=== PATIENT | female | born 1940 | race Caucasian/White ===

== ENCOUNTER 2018-06-05 21:00 | Emergency (ER) | payer MEDICARE, BC ==
[~2018-06-05] VITALS: Ht 162.6 cm; Wt 100.0 kg
[~2018-06-05 21:00] MED LIST: ASPI-1264 PO; ATOR10TA87 PO; CLOP75TA15 PO; GLIM1TAB46 PO; LEVO200T43 PO; MAX25Tt PO; METF500T PO
[2018-06-05 21:26] LABS: BASOPHILS # (AUTO) 0.1 X10'3 (0-0.2); BASOPHILS % (AUTO) 0.4 % (0-1); EOSINOPHILS # (AUTO) 0.2 X10'3 (0-0.9); EOSINOPHILS % (AUTO) 1.9 % (0-6); HEMATOCRIT 40.9 % (35.0-45.0); HEMOGLOBIN 13.4 g/dl (12.0-16.0); LYMPHOCYTES # (AUTO) 2.7 X10'3 (1.1-4.8); LYMPHOCYTES % (AUTO) 20.9 % (21-51); MEAN CORPUSCULAR HGB CONC 32.7 % (33.0-36.5); MEAN CORPUSCULAR VOLUME 85.5 FL (78-98); MEAN PLATELET VOLUME 8.6 FL (7.4-10.4); MONOCYTES # (AUTO) 0.6 X10'3 (0-0.9); MONOCYTES % (AUTO) 4.4 % (2-12); NEUTROPHILS # (AUTO) 9.2 X10'3 (1.8-7.7); NEUTROPHILS % (AUTO) 72.4 % (42-75); PLATELET COUNT 303 X10'3 (140-440); RED BLOOD COUNT 4.78 X10'6 (4.20-5.60); RED CELL DISTRIBUTION WIDTH 14.5 % (11.5-14.5); WHITE BLOOD COUNT 12.7 X10'3 (4.5-11.0)
[2018-06-05 21:44] LABS: PARTIAL THROMBOPLASTIN TIME 27 SECONDS (22-32)
[2018-06-05 21:46] LABS: ALANINE AMINOTRANSFERASE 19 U/L (12-78); ALBUMIN 3.7 G/DL (3.4-5.0); ALBUMIN/GLOBULIN RATIO 0.9 (1.1-1.5); ALKALINE PHOSPHATASE 77 IU/L (46-116); ANION GAP 12 (8-16); ASPARTATE AMINO TRANSFERASE 16 U/L (10-37); BILIRUBIN,TOTAL 0.3 MG/DL (0.1-1.0); BLOOD UREA NITROGEN 31 MG/DL (7-18); CALCIUM 9.1 MG/DL (8.5-10.1); CHLORIDE 103 MMOL/L (99-107); CREATININE 1.55 MG/DL (0.40-0.90); GLUCOSE 197 MG/DL (70-104); POTASSIUM 3.7 MMOL/L (3.5-5.1); SODIUM 141 MMOL/L (135-145); TOTAL CARBON DIOXIDE 25.9 MMOL/L (24-32); TOTAL PROTEIN 7.8 G/DL (6.4-8.2); TROPONIN I < 0.04 NG/ML (0.0-0.05); eGFR 33 ML/MIN
[2018-06-05 21:48] VITALS: BP 163/85
[2018-06-05] MEDS ORDERED: diphenhydrAMINE 25mg capsule PO ONE (22:00)
== END 2018-06-05 22:32 | disposition home or self-care (01) ==
LOC: ER 21:00
DX: S00.86XA Insect bite (nonvenomous) of other part of head, initial encounter (principal); R29.810 Facial weakness; I25.10 Atherosclerotic heart disease of native coronary artery without angina pectoris; I50.9 Heart failure, unspecified; E03.9 Hypothyroidism, unspecified; Z90.710 Acquired absence of both cervix and uterus; Z86.73 Personal history of transient ischemic attack (TIA), and cerebral infarction without residual deficits; Z98.890 Other specified postprocedural states; Z88.5 Allergy status to narcotic agent; Z79.82 Long term (current) use of aspirin; Z79.899 Other long term (current) drug therapy; W57.XXXA Bitten or stung by nonvenomous insect and other nonvenomous arthropods, initial encounter; Y93.89 Activity, other specified; Y92.89 Other specified places as the place of occurrence of the external cause; Y99.8 Other external cause status
CPT/HCPCS: 36415; 70450; 80053; 84484; 85025; 85610; 85651; 85730; 93005; 99284; Q0163

== ENCOUNTER 2019-01-22 09:42 | Emergency (ER) | payer MEDICARE, BC ==
[~2019-01-22] VITALS: Ht 152.4 cm; Wt 96.4 kg
--- NOTE | 2019-01-22 09:59 | NUR ---
PT TAKEN TO CT
[2019-01-22 10:44] LABS: BASOPHILS # (AUTO) 0.1 X10'3 (0-0.2); EOSINOPHILS # (AUTO) 0.2 X10'3 (0-0.9); EOSINOPHILS % (AUTO) 2.5 % (0-6); HEMATOCRIT 40.6 % (35.0-45.0); HEMOGLOBIN 13.3 g/dl (12.0-16.0); LYMPHOCYTES # (AUTO) 1.7 X10'3 (1.1-4.8); LYMPHOCYTES % (AUTO) 19.3 % (21-51); MEAN CORPUSCULAR HEMOGLOBIN 27.7 PG (27.0-31.0); MEAN CORPUSCULAR HGB CONC 32.8 g/dL (33.0-36.5); MEAN CORPUSCULAR VOLUME 84.5 FL (78-98); MEAN PLATELET VOLUME 8.5 FL (7.4-10.4); MONOCYTES # (AUTO) 0.5 X10'3 (0-0.9); MONOCYTES % (AUTO) 6.1 % (2-12); NEUTROPHILS # (AUTO) 6.3 X10'3 (1.8-7.7); NEUTROPHILS % (AUTO) 71.1 % (42-75); PLATELET COUNT 238 X10'3 (140-440); RED BLOOD COUNT 4.81 X10'6 (4.20-5.60); RED CELL DISTRIBUTION WIDTH 14.5 % (11.5-14.5); WHITE BLOOD COUNT 8.9 X10'3 (4.5-11.0)
[2019-01-22 10:55] LABS: PARTIAL THROMBOPLASTIN TIME 27 SECONDS (22-32)
[2019-01-22 10:59] LABS: ALANINE AMINOTRANSFERASE 22 U/L (12-78); ALBUMIN 3.6 G/DL (3.4-5.0); ALBUMIN/GLOBULIN RATIO 0.9 (1.1-1.5); ALKALINE PHOSPHATASE 75 IU/L (46-116); ANION GAP 12 (8-16); ASPARTATE AMINO TRANSFERASE 17 U/L (10-37); BILIRUBIN,TOTAL 0.4 MG/DL (0.1-1.0); BLOOD UREA NITROGEN 28 MG/DL (7-18); BUN/CREATININE RATIO 20.9 (6.6-38.0); CALCIUM 8.9 MG/DL (8.5-10.1); CHLORIDE 106 MMOL/L (99-107); CREATININE 1.34 MG/DL (0.40-0.90); GLUCOSE 98 MG/DL (70-104); POTASSIUM 3.6 MMOL/L (3.5-5.1); SODIUM 143 MMOL/L (135-145); TOTAL CARBON DIOXIDE 25.4 MMOL/L (24-32); TOTAL PROTEIN 7.5 G/DL (6.4-8.2); eGFR 38 ML/MIN
[2019-01-22 11:03] LABS: TROPONIN I < 0.04 NG/ML (0.0-0.05)
[2019-01-22 13:54] LABS: CLARITY,URINE CLEAR (Clear); COLOR,URINE YELLOW (Yellow); GLUCOSE, URINE NEGATIVE (Neg); KETONES,URINE NEGATIVE (Neg); LEUKOCYTE ESTERASE ,URINE NEGATIVE (Neg); NITRITES, URINE NEGATIVE (Neg); OCCULT BLOOD,URINE NEGATIVE (Neg); PROTEIN,URINE NEGATIVE (Neg); UA COLLECTION TYPE STRAIGHT CATH; UROBILINOGEN,URINE 0.2 E.U/dL (0.2-1.0)
[2019-01-22 14:36] VITALS: BP 144/76
== END 2019-01-22 14:38 | disposition home or self-care (01) ==
LOC: ER 09:43
DX: R53.1 Weakness (principal); R20.0 Anesthesia of skin; I25.10 Atherosclerotic heart disease of native coronary artery without angina pectoris; I25.2 Old myocardial infarction; E11.9 Type 2 diabetes mellitus without complications; E03.9 Hypothyroidism, unspecified; Z86.73 Personal history of transient ischemic attack (TIA), and cerebral infarction without residual deficits; Z90.710 Acquired absence of both cervix and uterus; Z98.890 Other specified postprocedural states; Z88.5 Allergy status to narcotic agent; Z79.82 Long term (current) use of aspirin; Z79.84 Long term (current) use of oral hypoglycemic drugs; Z79.899 Other long term (current) drug therapy; Z79.01 Long term (current) use of anticoagulants
CPT/HCPCS: 36415; 70450; 71045; 80053; 81003; 82948; 84484; 85025; 85610; 85730; 93005; 99284; P9612

== ENCOUNTER 2021-04-08 13:52 | Emergency (ER) | payer MEDICARE, BC ==
[~2021-04-08] VITALS: Ht 165.1 cm; Wt 78.2 kg
[~2021-04-08 13:52] MED LIST changes: +ASPI-1071 PO; -ASPI-1264 PO; -CLOP75TA15 PO; -GLIM1TAB46 PO; +HYDROchlorothiazide tablet PO; +LEVO125T8 PO; -LEVO200T43 PO; -MAX25Tt PO; -METF500T PO
[2021-04-08 14:58] LABS: BASOPHILS % (AUTO) 0.3 % (0-1); EOSINOPHILS # (AUTO) 0.1 X10'3 (0-0.9); EOSINOPHILS % (AUTO) 0.5 % (0-6); HEMATOCRIT 35.6 % (35.0-45.0); HEMOGLOBIN 12.1 g/dl (12.0-16.0); LYMPHOCYTES # (AUTO) 1.1 X10'3 (1.1-4.8); MEAN CORPUSCULAR HEMOGLOBIN 29.7 PG (27.0-31.0); MEAN CORPUSCULAR VOLUME 87.3 FL (78-98); MEAN PLATELET VOLUME 8.9 FL (7.4-10.4); MONOCYTES # (AUTO) 0.5 X10'3 (0-0.9); MONOCYTES % (AUTO) 5.1 % (2-12); NEUTROPHILS # (AUTO) 8.8 X10'3 (1.8-7.7); NEUTROPHILS % (AUTO) 84.1 % (42-75); PLATELET COUNT 194 X10'3 (140-440); RED BLOOD COUNT 4.07 X10'6 (4.20-5.60); RED CELL DISTRIBUTION WIDTH 13.9 % (11.5-14.5); WHITE BLOOD COUNT 10.5 X10'3 (4.5-11.0)
[2021-04-08 15:14] LABS: ALANINE AMINOTRANSFERASE 15 U/L (12-78); ALBUMIN 3.8 G/DL (3.4-5.0); ALBUMIN/GLOBULIN RATIO 1.1 (1.1-1.5); ALKALINE PHOSPHATASE 79 IU/L (46-116); ANION GAP 10 (8-16); ASPARTATE AMINO TRANSFERASE 21 U/L (10-37); BILIRUBIN,TOTAL 0.4 MG/DL (0.1-1.0); BLOOD UREA NITROGEN 32 MG/DL (7-18); BUN/CREATININE RATIO 19.3 (6.6-38.0); CALCIUM 9.1 MG/DL (8.5-10.1); CHLORIDE 107 MMOL/L (99-107); CREATININE 1.66 MG/DL (0.40-0.90); GLUCOSE 158 MG/DL (70-104); POTASSIUM 3.6 MMOL/L (3.5-5.1); SODIUM 143 MMOL/L (135-145); TOTAL CARBON DIOXIDE 25.6 MMOL/L (24-32); TOTAL PROTEIN 7.4 G/DL (6.4-8.2); eGFR 30 ML/MIN
--- NOTE | 2021-04-08 15:16 | NUR ---
sister at be bedside.
[2021-04-08] MEDS ORDERED: normal saline 1000ML IV soln IVB ONE (16:30)
[2021-04-08 17:40] VITALS: BP 158/82
== END 2021-04-08 19:13 | disposition home or self-care (01) ==
LOC: ER 13:53
DX: E86.0 Dehydration (principal); R55 Syncope and collapse; I25.10 Atherosclerotic heart disease of native coronary artery without angina pectoris; I25.2 Old myocardial infarction; E11.9 Type 2 diabetes mellitus without complications; Z86.73 Personal history of transient ischemic attack (TIA), and cerebral infarction without residual deficits; Z90.710 Acquired absence of both cervix and uterus; Z98.890 Other specified postprocedural states; Z88.5 Allergy status to narcotic agent; Z79.82 Long term (current) use of aspirin; Z79.899 Other long term (current) drug therapy
CPT/HCPCS: 36415; 71045; 80053; 83880; 84484; 85025; 93005; 99285; J7030

== ENCOUNTER 2021-04-13 15:44 | Inpatient (IN) | payer MEDICARE, BC ==
[~2021-04-13] VITALS: Ht 162.6 cm; Wt 80.2 kg
[2021-04-13 19:12] LABS: BASOPHILS % (AUTO) 0.3 % (0-1); EOSINOPHILS # (AUTO) 0.1 X10'3 (0-0.9); EOSINOPHILS % (AUTO) 0.4 % (0-6); HEMATOCRIT 35.4 % (35.0-45.0); HEMOGLOBIN 11.7 g/dl (12.0-16.0); LYMPHOCYTES # (AUTO) 1.5 X10'3 (1.1-4.8); LYMPHOCYTES % (AUTO) 12.2 % (21-51); MEAN CORPUSCULAR HEMOGLOBIN 28.8 PG (27.0-31.0); MEAN CORPUSCULAR HGB CONC 33.2 g/dL (33.0-36.5); MEAN PLATELET VOLUME 8.8 FL (7.4-10.4); MONOCYTES # (AUTO) 0.6 X10'3 (0-0.9); MONOCYTES % (AUTO) 4.7 % (2-12); NEUTROPHILS # (AUTO) 9.8 X10'3 (1.8-7.7); NEUTROPHILS % (AUTO) 82.4 % (42-75); PLATELET COUNT 262 X10'3 (140-440); RED BLOOD COUNT 4.07 X10'6 (4.20-5.60); RED CELL DISTRIBUTION WIDTH 14.2 % (11.5-14.5); WHITE BLOOD COUNT 11.9 X10'3 (4.5-11.0)
[2021-04-13 19:24] LABS: PARTIAL THROMBOPLASTIN TIME 25 SECONDS (22-32)
[2021-04-13 19:27] LABS: ALANINE AMINOTRANSFERASE 18 U/L (12-78); ALBUMIN 3.7 G/DL (3.4-5.0); ALKALINE PHOSPHATASE 75 IU/L (46-116); ANION GAP 10 (8-16); ASPARTATE AMINO TRANSFERASE 27 U/L (10-37); BILIRUBIN,TOTAL 0.4 MG/DL (0.1-1.0); BLOOD UREA NITROGEN 33 MG/DL (7-18); BUN/CREATININE RATIO 24.6 (6.6-38.0); CALCIUM 8.8 MG/DL (8.5-10.1); CHLORIDE 106 MMOL/L (99-107); CREATININE 1.34 MG/DL (0.40-0.90); POTASSIUM 3.5 MMOL/L (3.5-5.1); SODIUM 143 MMOL/L (135-145); TOTAL PROTEIN 7.3 G/DL (6.4-8.2); eGFR 38 ML/MIN
[2021-04-13 19:31] LABS: GLUCOSE 39 MG/DL (70-104)
--- NOTE | 2021-04-13 19:31 | NUR ---
LAB CALLED; GLU 39; NOTIFIED
[2021-04-13] MEDS ORDERED: dextrose ORAL solution 15 GM/59 ML bottle PO ONE (19:35)
--- NOTE | 2021-04-13 19:38 | NUR ---
PATIENT WAS GIVEN GLUCOSE SHOT AND 4 OZ APPLE JUICE.
[2021-04-13] MEDS ORDERED: mag hydrox/Alum hydrox/simeth 30ml oral suspension PO PRN (23:35)
[2021-04-13] MEDS ORDERED: enoxaparin 100mg/ml syringe SUBCUT ONE (23:35)
[2021-04-13] MEDS ORDERED: acetaminophen 325mg tablet PO PRN ×2 (23:35)
[2021-04-13] MEDS ORDERED: magnesium hydroxide 30ml (MOM) UD suspension PO PRN (23:35)
[2021-04-13] MEDS ORDERED: morphine 2 MG/ML inj. syringe IV PRN ×2 (23:35)
[2021-04-13] MEDS ORDERED: ondansetron/PF 4mg/2ml inj IV PRN (23:35)
[2021-04-14] VITALS (9 sets, daily range): BP systolic 94–152; BP diastolic 54–72
[2021-04-14] MEDS ORDERED: ibuprofen tablet 400 MG TABLET PO ONE (00:10)
[2021-04-14 00:48] LABS: CLARITY,URINE SLIGHTLY CLOUDY (Clear); COLOR,URINE YELLOW (Yellow); GLUCOSE, URINE NEGATIVE (Neg); KETONES,URINE NEGATIVE (Neg); PROTEIN,URINE NEGATIVE (Neg); UA COLLECTION TYPE OTHER
[2021-04-14 00:49] LABS: LEUKOCYTE ESTERASE ,URINE MODERATE (Neg); NITRITES, URINE NEGATIVE (Neg); OCCULT BLOOD,URINE NEGATIVE (Neg); UROBILINOGEN,URINE 0.2 E.U/dL (0.2-1.0)
[2021-04-14 01:09] LABS: BACTERIA,URINE 1+ /HPF (Neg); SQUAMOUS EPITHELIAL CELL,UR MANY /LPF (FEW)
[2021-04-14 01:10] LABS: RBC,URINE 0-2 /HPF (0-2)
--- NOTE | 2021-04-14 03:48 | NUR ---
Pt arrived in the unit via gurney. a/O x 4, stable; Oriented the pt in the room and remind pt to use call pelaez button when in need. Tele monitor in placed. Pannus is red/excoriated & applied barrier cream. MRSA swab and 2 RN skin assessment done.
--- NOTE | 2021-04-14 06:52 | NUR ---
Problems reprioritized. Patient report given, questions answered & plan of care reviewed with MARY Greenfield.
[2021-04-14] MEDS: aspirin 81mg, enteric-coated 1 TAB TABLET.DR PO SCH (07:24)
[2021-04-14] MEDS: metoprolol tartrate 25mg tablet PO SCH ×2 (07:25→20:57)
[2021-04-14] MEDS: docusate sod 100mg capsule PO SCH ×2 (08:00→20:57)
[2021-04-14 08:23] LABS: BASOPHILS % (AUTO) 0.6 % (0-1); EOSINOPHILS # (AUTO) 0.2 X10'3 (0-0.9); EOSINOPHILS % (AUTO) 2.5 % (0-6); HEMATOCRIT 37.1 % (35.0-45.0); HEMOGLOBIN 12.1 g/dl (12.0-16.0); LYMPHOCYTES # (AUTO) 1.9 X10'3 (1.1-4.8); LYMPHOCYTES % (AUTO) 27.4 % (21-51); MEAN CORPUSCULAR HEMOGLOBIN 29.1 PG (27.0-31.0); MEAN CORPUSCULAR HGB CONC 32.6 g/dL (33.0-36.5); MEAN CORPUSCULAR VOLUME 89.4 FL (78-98); MEAN PLATELET VOLUME 9.2 FL (7.4-10.4); MONOCYTES # (AUTO) 0.5 X10'3 (0-0.9); MONOCYTES % (AUTO) 7.2 % (2-12); NEUTROPHILS # (AUTO) 4.4 X10'3 (1.8-7.7); NEUTROPHILS % (AUTO) 62.3 % (42-75); PLATELET COUNT 210 X10'3 (140-440); RED BLOOD COUNT 4.15 X10'6 (4.20-5.60); RED CELL DISTRIBUTION WIDTH 14.4 % (11.5-14.5)
[2021-04-14 09:22] LABS: D-DIMER 0.98 MG/L FEU (0-0.50)
[2021-04-14 09:53] LABS: ALBUMIN 3.7 G/DL (3.4-5.0); ANION GAP 15 (8-16); BLOOD UREA NITROGEN 32 MG/DL (7-18); BUN/CREATININE RATIO 26.2 (6.6-38.0); CALCIUM 9.3 MG/DL (8.5-10.1); CHLORIDE 109 MMOL/L (99-107); CHOLESTEROL 117 MG/DL (0-200); CREATININE 1.22 MG/DL (0.40-0.90); GLUCOSE 110 MG/DL (70-104); HDL CHOLESTEROL 39 MG/DL (35-60); LDL CHOLESTEROL 60 MG/DL (50-100); POTASSIUM 3.3 MMOL/L (3.5-5.1); SODIUM 149 MMOL/L (135-145); TOTAL CARBON DIOXIDE 25.4 MMOL/L (24-32); TRIGLYCERIDES 134 MG/DL (20-135); eGFR 43 ML/MIN
[2021-04-14] MEDS ORDERED: OXYB5TAB16 PO (14:06)
[2021-04-14] MEDS ORDERED: LEVO200T8 PO (14:06)
[2021-04-14] MEDS ORDERED: GLIM4TAB7 PO (14:06)
[2021-04-14] MEDS ORDERED: ATOR10TA70 PO (14:06)
[2021-04-14] MEDS ORDERED: TRIA1CAP6 PO (14:06)
[2021-04-14] MEDS ORDERED: METF-438 PO (14:06)
[2021-04-14] MEDS ORDERED: [UNRECOGNIZED DRUG - OTHER] PO SCH (18:31)
--- NOTE | 2021-04-14 19:55 | NUR ---
Status post fall, CT head negative- confused and family concern due to sudden episode of confusion. Hx. of CVA BP 146/58,p87, spo2 98@R/A. No new medication in the last 24 hours. Page sent to hospitalist and awaiting.
[2021-04-14] MEDS: oxybutynin 5mg tablet PO SCH (20:57)
[2021-04-15] MEDS: HYDROcodone/acetaminophen 5mg/325mg tablet PO PRN ×2 (00:26→19:45)
--- NOTE | 2021-04-15 03:59 | NUR ---
Hospitalist called made aware of patient status/ confusion and recommendation received to continue monitoring.
--- NOTE | 2021-04-15 06:22 | NUR ---
Patient in room PCU 3019. I have received report from MARY Heller and had the opportunity to ask questions and assume patient care.
[2021-04-15 06:47] LABS: BASOPHILS % (AUTO) 0.4 % (0-1); EOSINOPHILS # (AUTO) 0.1 X10'3 (0-0.9); EOSINOPHILS % (AUTO) 0.5 % (0-6); HEMATOCRIT 35.7 % (35.0-45.0); HEMOGLOBIN 11.8 g/dl (12.0-16.0); LYMPHOCYTES # (AUTO) 1.1 X10'3 (1.1-4.8); LYMPHOCYTES % (AUTO) 10.7 % (21-51); MEAN CORPUSCULAR HEMOGLOBIN 29.3 PG (27.0-31.0); MEAN CORPUSCULAR HGB CONC 33.1 g/dL (33.0-36.5); MEAN CORPUSCULAR VOLUME 88.3 FL (78-98); MEAN PLATELET VOLUME 8.8 FL (7.4-10.4); MONOCYTES # (AUTO) 0.5 X10'3 (0-0.9); MONOCYTES % (AUTO) 4.6 % (2-12); NEUTROPHILS # (AUTO) 8.5 X10'3 (1.8-7.7); NEUTROPHILS % (AUTO) 83.8 % (42-75); PLATELET COUNT 234 X10'3 (140-440); RED BLOOD COUNT 4.04 X10'6 (4.20-5.60); RED CELL DISTRIBUTION WIDTH 14.4 % (11.5-14.5); WHITE BLOOD COUNT 10.1 X10'3 (4.5-11.0)
[2021-04-15 06:59] LABS: ALBUMIN 3.5 G/DL (3.4-5.0); ANION GAP 12 (8-16); BLOOD UREA NITROGEN 30 MG/DL (7-18); BUN/CREATININE RATIO 21.9 (6.6-38.0); CALCIUM 9.1 MG/DL (8.5-10.1); CHLORIDE 106 MMOL/L (99-107); CREATININE 1.37 MG/DL (0.40-0.90); GLUCOSE 196 MG/DL (70-104); POTASSIUM 3.8 MMOL/L (3.5-5.1); SODIUM 144 MMOL/L (135-145); TOTAL CARBON DIOXIDE 26.3 MMOL/L (24-32); eGFR 37 ML/MIN
[2021-04-15 07:00] VITALS: BP 143/61
[2021-04-15] MEDS: docusate sod 100mg capsule PO SCH ×2 (08:00→19:43)
[2021-04-15] MEDS ORDERED: triamterene/HCTZ 37.5/25mg tablet PO SCH (08:00)
[2021-04-15] MEDS: metoprolol tartrate 25mg tablet PO SCH ×2 (09:15→19:47)
[2021-04-15] MEDS: aspirin 81mg, enteric-coated 1 TAB TABLET.DR PO SCH (09:15)
[2021-04-15] MEDS: oxybutynin 5mg tablet PO SCH ×2 (09:15→19:47)
[2021-04-15] MEDS: atorvastatin 10mg tablet PO SCH (09:15)
[2021-04-15] MEDS: levoTHYROXINE 100mcg tablet PO SCH (09:16)
[2021-04-15] MEDS ORDERED: metFORMIN 500mg tablet PO SCH (10:08)
[2021-04-15 11:00] VITALS: BP 137/62
[2021-04-15 15:00] VITALS: BP 123/48
[2021-04-15 18:00] VITALS: BP 104/54
--- NOTE | 2021-04-15 18:50 | NUR ---
Patient in room PCU 3020E. I have received report from MARY Greenfield and had the opportunity to ask questions and assume patient care.
--- NOTE | 2021-04-15 18:55 | NUR ---
Problems reprioritized. Patient report given, questions answered & plan of care reviewed with MARY Rodrigues.
[2021-04-15 19:02] VITALS: BP_SYST 104; BP_SYST 112; BP_SYST 115; BP_DIAS 54; BP_DIAS 61; BP_DIAS 68
[2021-04-15] MEDS: ciprofloxacin 250mg tablet PO SCH (19:47)
[2021-04-15 22:00] VITALS: BP 100/45
[2021-04-15] MEDS ORDERED: glucagon, human recombinant 1mg kit SUBCUT PRN (22:05)
[2021-04-15] MEDS ORDERED: dextrose ORAL solution 15 GM/59 ML bottle PO PRN ×2 (22:05)
[2021-04-15] MEDS ORDERED: dextrose 50%-water 50ml dispensing syringe IV PRN ×2 (22:05)
[2021-04-15] MEDS ORDERED: MESSAGE TO PHARMACY PO ONE (22:05)
[2021-04-15] MEDS ORDERED: insulin Lispro (HumaLOG) vial - multi-dose SQ SCH (22:05)
[2021-04-16] VITALS (7 sets, daily range): BP systolic 89–138; BP diastolic 29–69
[2021-04-16 06:07] LABS: BASOPHILS % (AUTO) 0.6 % (0-1); EOSINOPHILS # (AUTO) 0.3 X10'3 (0-0.9); EOSINOPHILS % (AUTO) 3.7 % (0-6); HEMATOCRIT 35.4 % (35.0-45.0); HEMOGLOBIN 11.4 g/dl (12.0-16.0); LYMPHOCYTES # (AUTO) 2.3 X10'3 (1.1-4.8); LYMPHOCYTES % (AUTO) 30.2 % (21-51); MEAN CORPUSCULAR HEMOGLOBIN 28.8 PG (27.0-31.0); MEAN CORPUSCULAR HGB CONC 32.3 g/dL (33.0-36.5); MEAN CORPUSCULAR VOLUME 89.1 FL (78-98); MEAN PLATELET VOLUME 8.8 FL (7.4-10.4); MONOCYTES # (AUTO) 0.6 X10'3 (0-0.9); MONOCYTES % (AUTO) 7.4 % (2-12); NEUTROPHILS # (AUTO) 4.5 X10'3 (1.8-7.7); NEUTROPHILS % (AUTO) 58.1 % (42-75); PLATELET COUNT 210 X10'3 (140-440); RED BLOOD COUNT 3.98 X10'6 (4.20-5.60); RED CELL DISTRIBUTION WIDTH 14.6 % (11.5-14.5); WHITE BLOOD COUNT 7.7 X10'3 (4.5-11.0)
[2021-04-16 06:10] LABS: ANION GAP 9 (8-16); BLOOD UREA NITROGEN 33 MG/DL (7-18); BUN/CREATININE RATIO 20.6 (6.6-38.0); CALCIUM 8.4 MG/DL (8.5-10.1); CHLORIDE 108 MMOL/L (99-107); GLUCOSE 83 MG/DL (70-104); POTASSIUM 3.7 MMOL/L (3.5-5.1); SODIUM 145 MMOL/L (135-145); TOTAL CARBON DIOXIDE 28.3 MMOL/L (24-32); eGFR 31 ML/MIN
--- NOTE | 2021-04-16 07:12 | NUR ---
Problems reprioritized. Patient report given, questions answered & plan of care reviewed with MARY Marcum.
[2021-04-16] MEDS: atorvastatin 10mg tablet PO SCH (09:16)
[2021-04-16] MEDS: aspirin 81mg, enteric-coated 1 TAB TABLET.DR PO SCH (09:16)
[2021-04-16] MEDS: docusate sod 100mg capsule PO SCH ×2 (09:17→19:36)
[2021-04-16] MEDS: oxybutynin 5mg tablet PO SCH ×2 (09:17→19:36)
[2021-04-16] MEDS: levoTHYROXINE 100mcg tablet PO SCH (09:17)
[2021-04-16] MEDS: ciprofloxacin 250mg tablet PO SCH ×2 (09:17→19:35)
[2021-04-16] MEDS: metoprolol tartrate 25mg tablet PO SCH ×2 (09:18→19:37)
[2021-04-16] MEDS: normal saline 1000ml 1,000 ML IV SCH ×2 (09:19→22:25)
[2021-04-16] MEDS: HYDROcodone/acetaminophen 5mg/325mg tablet PO PRN (09:27)
--- NOTE | 2021-04-16 18:11 | NUR ---
Problems reprioritized. Patient report given, questions answered & plan of care reviewed with Khushi HERNANDEZ.
--- NOTE | 2021-04-16 18:16 | NUR ---
Patient in room PCU 3027. I have received report from Trixie HERNANDEZ and had the opportunity to ask questions and assume patient care.Pt is sitting up in bed eating dinner with no signs of distress. Will continue to monitor.
--- NOTE | 2021-04-16 18:30 | NUR ---
Patient in room PCU 3027. I have received report from MARY Marcum and had the opportunity to ask questions and assume patient care.
[2021-04-16] MEDS: lactobacillus rhamnosus 10,000 MMU CELLS/CAPSULE PO SCH (19:36)
[2021-04-16] MEDS: nystatin 15 GM powder TP SCH (19:38)
[2021-04-16] MEDS ORDERED: insulin glargine (Lantus) pen - multi-dose SQ SCH (21:00)
--- NOTE | 2021-04-17 01:02 | NUR ---
Problems reprioritized. Patient report given, questions answered & plan of care reviewed with Gin HERNANDEZ.
--- NOTE | 2021-04-17 01:03 | NUR ---
Problems reprioritized. Patient report given to MARY Greenfield , questions answered & plan of care reviewed with .
--- NOTE | 2021-04-17 01:30 | NUR ---
Patient in room PCU 3027. I have received report from MARY Puri and had the opportunity to ask questions and assume patient care.
[2021-04-17 02:00] VITALS: BP 109/58
--- NOTE | 2021-04-17 02:24 | NUR ---
Pt c/o bladder heaviness/pain. Some abdominal rigidity above bladder region. Bladder scans show 1120 and 1141 mL fluid. patient has good urinary output of approx 200 mL hr via wick. Paged Dr Todd: PAGER ID: [phone] MESSAGE: Hong Isabel [id number] pt w/likely UTI c/o bladder heavy/pain, scan shows 1150, good output. may I SCath for poss retention? Gin [phone]
[2021-04-17 04:09] LABS: CLARITY,URINE CLEAR (Clear); COLOR,URINE STRAW (Yellow); GLUCOSE, URINE NEGATIVE (Neg); KETONES,URINE NEGATIVE (Neg); NITRITES, URINE NEGATIVE (Neg); OCCULT BLOOD,URINE NEGATIVE (Neg); PROTEIN,URINE NEGATIVE (Neg); UA COLLECTION TYPE NON-SPECIFIED; UROBILINOGEN,URINE 0.2 E.U/dL (0.2-1.0)
[2021-04-17 04:10] LABS: LEUKOCYTE ESTERASE ,URINE NEGATIVE (Neg)
[2021-04-17 06:00] VITALS: BP_SYST 136; BP_SYST 86; BP_DIAS 29; BP_DIAS 70
[2021-04-17 06:23] LABS: BASOPHILS # (AUTO) 0.1 X10'3 (0-0.2); BASOPHILS % (AUTO) 0.5 % (0-1); EOSINOPHILS # (AUTO) 0.2 X10'3 (0-0.9); EOSINOPHILS % (AUTO) 1.6 % (0-6); HEMATOCRIT 37.2 % (35.0-45.0); LYMPHOCYTES # (AUTO) 1.4 X10'3 (1.1-4.8); MEAN CORPUSCULAR HEMOGLOBIN 28.8 PG (27.0-31.0); MEAN CORPUSCULAR HGB CONC 32.2 g/dL (33.0-36.5); MEAN CORPUSCULAR VOLUME 89.4 FL (78-98); MONOCYTES # (AUTO) 0.7 X10'3 (0-0.9); MONOCYTES % (AUTO) 6.2 % (2-12); NEUTROPHILS % (AUTO) 79.7 % (42-75); PLATELET COUNT 223 X10'3 (140-440); RED BLOOD COUNT 4.16 X10'6 (4.20-5.60); RED CELL DISTRIBUTION WIDTH 14.6 % (11.5-14.5); WHITE BLOOD COUNT 11.3 X10'3 (4.5-11.0)
--- NOTE | 2021-04-17 06:28 | NUR ---
Problems reprioritized. Patient report given, questions answered & plan of care reviewed with MARY Yarbrough.
--- NOTE | 2021-04-17 06:58 | NUR ---
Patient in room PCU 3027. I have received report from MARY Greenfield and had the opportunity to ask questions and assume patient care.
[2021-04-17 07:03] LABS: ALBUMIN 3.4 G/DL (3.4-5.0); ANION GAP 15 (8-16); BLOOD UREA NITROGEN 31 MG/DL (7-18); BUN/CREATININE RATIO 18.6 (6.6-38.0); CHLORIDE 108 MMOL/L (99-107); CREATININE 1.67 MG/DL (0.40-0.90); GLUCOSE 123 MG/DL (70-104); POTASSIUM 4.1 MMOL/L (3.5-5.1); SODIUM 146 MMOL/L (135-145); eGFR 30 ML/MIN
[2021-04-17] MEDS: lactobacillus rhamnosus 10,000 MMU CELLS/CAPSULE PO SCH (08:32)
[2021-04-17] MEDS: levoTHYROXINE 100mcg tablet PO SCH (08:32)
[2021-04-17] MEDS: metoprolol tartrate 25mg tablet PO SCH (08:33)
[2021-04-17] MEDS: oxybutynin 5mg tablet PO SCH (08:33)
[2021-04-17] MEDS: ciprofloxacin 250mg tablet PO SCH (08:33)
[2021-04-17] MEDS: atorvastatin 10mg tablet PO SCH (08:33)
[2021-04-17] MEDS: aspirin 81mg, enteric-coated 1 TAB TABLET.DR PO SCH (08:33)
[2021-04-17] MEDS: docusate sod 100mg capsule PO SCH (08:33)
[2021-04-17] MEDS: nystatin 15 GM powder TP SCH (08:34)
[2021-04-17 11:00] VITALS: BP 115/26
--- NOTE | 2021-04-17 13:06 | NUR ---
pt refusing BG, A1C 5.9 not met protocol thus far, diet controlled. will speak with MD about DC order. Addendum: 04/17/21 at 1308 by Linnea Keita RN Amended: Links added.
== END 2021-04-17 14:20 | DRG 637 ==
LOC: ER 15:44 → ED HOLD 23:39 → PCU 3S 04-14 03:38
PROVIDERS: ADMIT Internal Medicine; ATTEND Internal Medicine
DX: E11.649 Type 2 diabetes mellitus with hypoglycemia without coma (principal); G93.41 Metabolic encephalopathy; N39.0 Urinary tract infection, site not specified; N17.0 Acute kidney failure with tubular necrosis; E03.9 Hypothyroidism, unspecified; R55 Syncope and collapse; I25.10 Atherosclerotic heart disease of native coronary artery without angina pectoris; R53.81 Other malaise; S00.12XA Contusion of left eyelid and periocular area, initial encounter; Z20.822 Contact with and (suspected) exposure to COVID-19; W18.39XA Other fall on same level, initial encounter; Z60.2 Problems related to living alone; Y93.01 Activity, walking, marching and hiking; Z96.653 Presence of artificial knee joint, bilateral; Z66 Do not resuscitate; Z83.3 Family history of diabetes mellitus; I25.2 Old myocardial infarction; Z86.73 Personal history of transient ischemic attack (TIA), and cerebral infarction without residual deficits; Z90.710 Acquired absence of both cervix and uterus; Y92.090 Kitchen in other non-institutional residence as the place of occurrence of the external cause; Y99.8 Other external cause status; Z88.5 Allergy status to narcotic agent; Z79.899 Other long term (current) drug therapy; Z79.82 Long term (current) use of aspirin
CPT/HCPCS: 36415; 70450; 72125; 80048; 80053; 80061; 81001; 81003; 82948; 83036; 83735; 83880; 84484; 85025; 85379; 85610; 85730; 87081; 87635; 93005; 93306; 97110; 97116; 97162; 97530; 97535; 99285; G0378; J1650; J1815; J2270; J2405; J7030